=== PATIENT | female | born 1980 | race Caucasian/White ===

== ENCOUNTER 2017-04-01 11:19 | Inpatient (IN) | payer BC ==
[2017-03-27 11:46] LABS: HEMATOCRIT 41.3 % (36.0-48.0); HEMOGLOBIN 14.3 g/dL (12.0-16.0)
[2017-03-27 11:59] LABS: ASCORBIC ACID (UR NOT ORDER) 40 (NEG); BILIRUBIN, URINE NEGATIVE (NEG); KETONE, URINE NEGATIVE (NEG); LEUKOCYTE ESTERASE(NOT OR NEG (NEG); WBC (NOT ORDERED) (RFLEX) 2 (0-5)
--- NOTE | ~2017-04-01 | OP ---
Record Of Operation [facility] [address] [place]. [address] NAME: RODRIGO RAMIREZ : 84 STATUS : ADM IN PAT#: [id number] AGE: 36 ADM/REG DATE : 04/01/17 MR#: [id number] REPORT SERV DATE: 04/01/17 DICTATED BY: ALEJANDRO BUTLER JR. DATE: 04/01/17 REPORT STATUS : Draft TRANSCRIBED BY: MODJerry DATE: 04/01/17 DATE OF PROCEDURE: 04/01/2017 SURGEON: Alejandro Butler M.D. PREOPERATIVE DIAGNOSIS: Stress urinary incontinence with type 2 urethra. POSTOPERATIVE DIAGNOSIS: Stress urinary incontinence with type 2 urethra. PROCEDURE PERFORMED: Cystoscopy and placement of autologous fascia sling. COMPLICATIONS: None. CONSULTATIONS: None. ANESTHESIA: General with an endotracheal tube. SPECIMENS: None. DRAINS: A 16-Argentine Lacey catheter. ESTIMATED BLOOD LOSS: 15 mL. INDICATION: Ms. Ramirez is a 36-year-old female, who has a long history of stress urinary incontinence. She has failed conservative management with physical therapy. Cystoscopic examination in the office revealed a classic type 2 urethra without cystocele. Bladder was normal. Both ureteral orifices were in the normal position. She comes today for autologous fascial sling. After discussing the surgical options including bulking agents and other sling materials. PROCEDURE IN DETAIL: After the patient was identified and proper informed consent was obtained, she was taken to the operating room. General anesthesia was performed without complication using an endotracheal tube. She was then prepped and draped in normal sterile fashion in the lithotomy position. Cystoscopic examination of the urethra reveals again a normal urethra with normal bladder. I then harvested the fascia from her right distal lateral thigh and the tensor fascia ludin. A 7 cm incision was made just proximal to the lateral upper condyle of the femur and a 10 cm x 2 cm strip of tensor fascia ludin was harvested. I closed the wound after irrigation using a 3-0 chromic suture in the subcutaneous tissues as she has some adverse reaction to the Vicryl. I then used a 4-0 Monocryl in a subcuticular fashion in the skin. Airstrip and Александр Wrap were used for dressing. I then turned my attention to the vaginal dissection, and making an inverted U incision overlying the mid urethra, and placing a Lacey catheter in place, 16-Argentine. I mobilized the flap of vaginal mucosa after injecting with 1% Marcaine with epinephrine. I then entered the space of Retzius on each side using digital dissection, and then placed a small vaginal packing to control the small amount of bleeding that was present. I then made a suprapubic incision approximately 4 to 5 cm in length down to the level of the rectus Record Of Operation [facility] [id number] [place]. [address] NAME: RODRIGO RAMIREZ : 84 STATUS : ADM IN PAT#: [id number] AGE: 36 ADM/REG DATE : 04/01/17 MR#: [id number] REPORT SERV DATE: 04/01/17 DICTATED BY: ALEJANDRO BUTLER JR. DATE: 04/01/17 REPORT STATUS : Draft TRANSCRIBED BY: ALEJANDRA DATE: 04/01/17 fascia just superior to the pubic bone. I then placed the trocar needles along the right side of the bladder neck down into my vaginal incision through the Retzius space just behind the pubic bone. I performed cystoscopy after placement of these two needles while there were still in place to ensure there was no bladder injury. I removed the cystoscope and replaced the Lacey. I then brought up the two ends of the 0 Prolene sutures that were attached to the sling material on the right side. I then repeated the process on the left. Again, performed a cystoscopy after placing needles, there was no injury noted. I then brought the other side of the sling material up around the urethra in the sling type fashion. I then spread the sling out flat across the mid urethra, securing it in place using a 4-0 Monocryl suture. Both distally and proximally on the urethra to ensure a nice smooth flat displacement of the sling. I then tied the sling material on each side leaving approximately 1/2 to 3/4 of an inch of air between the knot and the fascia, due to the fact that she is quite thin, and I did not feel that a full inch of air between the knot and the fascia would be adequate for continence. Once, the sutures had been tied, I irrigated all the wounds copiously. I closed the suprapubic incision using a 3-0 chromic suture in the subcutaneous tissues, with a 4-0 Monocryl on the skin of that incision as well. An Airstrip were used for dressing. I closed the vaginal incision after irrigating using a 2-0 chromic suture in a running fashion. The Lacey catheter was left in place. A small vaginal packing with triple antibiotic ointment was placed in the vagina, and the patient was awakened in the operating room, and transferred to the postanesthesia care unit in stable condition. SABRA/ALEJANDRA Alejandro Butler Jr., M.D. / [id number] CC: Alejandro Butler Jr., M.D.
[~2017-04-01 11:19] MED LIST: ALLEGRA180 PO; EFFEXXR75 PO; VALTREX5 PO
[2017-04-02] MEDS ORDERED: DIL2TAB PO (09:48)
[2017-04-24] MEDS ORDERED: MONODOX100 MG PO (12:46)
== END 2017-04-03 08:59 | disposition home or self-care (01) | DRG 748 ==
LOC: SDC/OF 11:19 → PACU 15:22 → 4SO 16:21
PROVIDERS: Urology
PROC: 0TJB8ZZ Inspection of Bladder, Via Natural or Artificial Opening Endoscopic (ICD-10-PCS; principal; 2017-04-01 12:45)
PROC: 0TSD0ZZ Reposition Urethra, Open Approach (ICD-10-PCS; principal; 2017-04-01 12:45)
DX: N39.3 Stress incontinence (female) (male) (principal); F32.9 Major depressive disorder, single episode, unspecified; R35.1 Nocturia; R39.11 Hesitancy of micturition; Z90.710 Acquired absence of both cervix and uterus; Z79.890 Hormone replacement therapy; Z79.899 Other long term (current) drug therapy; F41.9 Anxiety disorder, unspecified; E07.9 Disorder of thyroid, unspecified
CPT/HCPCS: 36415; 81001; 85014; 85018; 86850; 86900; 86901; A9270-GY; J0690; J1170; J2250; J2270; J2405; J2710; J3010

== ENCOUNTER 2017-04-25 09:07 | Day surgery (SDC) | payer BC ==
--- NOTE | ~2017-04-25 | OP ---
Record Of Operation [facility] [address] [place]. [address] NAME: RODRIGO RAMIREZ : 84 STATUS : [facility]#: [id number] AGE: 36 ADM/REG DATE : 04/25/17 MR#: [id number] REPORT SERV DATE: 04/25/17 DICTATED BY: ALEJANDRO BUTLER JR. DATE: 04/25/17 REPORT STATUS : Draft TRANSCRIBED BY: MODJerry DATE: 04/25/17 DATE OF PROCEDURE: 04/25/2017 SURGEON: Alejandro Butler M.D. PREOPERATIVE DIAGNOSIS: Wound infection both in the suprapubic area and the right thigh from her donor site and slight urinary retention. POSTOPERATIVE DIAGNOSIS: Wound infection both in the suprapubic area and the right thigh from her donor site and slight urinary retention. PROCEDURE PERFORMED: Cystoscopy, excision of wound edges, irrigation, and re-closure of suprapubic and graft site. COMPLICATIONS: None. CONSULTATIONS: None. ANESTHESIA: General with a laryngeal mask airway. SPECIMENS: None. DRAINS: None. ESTIMATED BLOOD LOSS: 5 mL. INDICATION: Ms Ramirez is a 36-year-old female, who underwent an autologous fascial sling approximately three weeks ago. She has a known allergy for reaction to Vicryl sutures from prior operations where she has had wound dehiscence and infections in the past. On this particular operation, I used chromic gut suture for closure in places where Vicryl would normally have been used. For the past several weeks, she has had continued areas of these incisions that are opened up and drained a salmon-colored fluid. She has been on oral antibiotics for these wound infections and at this point, we decided simply to excise the wound edges as well as the chromic sutures that seemed to be causing her problems and reclosed with nylon. PROCEDURE IN DETAIL: After the patient was identified and proper informed consent was obtained, she was taken to the operating room. General anesthesia was performed without complication using a laryngeal mask airway. She was prepped and draped in normal sterile fashion in the lithotomy position. Cystoscopic examination was performed to evaluate the bladder neck to make sure there was no elevation of the bladder neck causing her retention. I did not note any abnormalities with the urethra. Her bladder appeared normal. There was no evidence of perforation of the bladder neck and overall a normal cystoscopy. I then began by excising the wound edges of the suprapubic incision. I irrigated them copiously with the suction evacuator lavage system and then closed using horizontal mattress sutures of 3-0 nylon. I did the same procedure to her right thigh incision site by excising the Record Of Operation [facility] [address] [place]. [address] NAME: RODRIGO RAMIREZ : 84 STATUS : [facility]#: [id number] AGE: 36 ADM/REG DATE : 04/25/17 MR#: [id number] REPORT SERV DATE: 04/25/17 DICTATED BY: ALEJANDRO BUTLER JR. DATE: 04/25/17 REPORT STATUS : Draft TRANSCRIBED BY: ALEJANDRA DATE: 04/25/17 length of the incision site and irrigating the wound copiously again closing using 3-0 nylon horizontal mattress sutures. The patient was awakened in the operating room, transferred to the postanesthesia care in stable condition. I will see her back in approximately two weeks for suture removal. SABRA/ALEJANDRA Alejandro Butler Jr., M.D. / [id number] CC: Nas Velarde Jr., Jr., M.D.
[~2017-04-25 09:07] MED LIST changes: +DIL2TAB PO; +MONODOX100 MG PO
== END 2017-04-25 18:58 | disposition home or self-care (01) ==
LOC: SDC 09:07
PROVIDERS: Urology
PROC: 0H9HXZZ Drainage of Right Upper Leg Skin, External Approach (ICD-10-PCS; principal; 2017-04-25 11:15)
DX: T83.598A Infection and inflammatory reaction due to other prosthetic device, implant and graft in urinary system, initial encounter (principal); E03.9 Hypothyroidism, unspecified; G43.909 Migraine, unspecified, not intractable, without status migrainosus; Z90.710 Acquired absence of both cervix and uterus; Z79.2 Long term (current) use of antibiotics; Z79.899 Other long term (current) drug therapy; Z98.890 Other specified postprocedural states
CPT/HCPCS: A9270-GY; J0694; J1170; J2250; J2270; J2405; J3010